=== PATIENT | male | born 1950 | race Caucasian/White ===

== ENCOUNTER 2018-11-10 14:07 | Inpatient (IN) | payer OTHER, MEDICARE ==
[~2018-11-10] VITALS: Ht 175.3 cm; Wt 106.1 kg
--- OUTSIDE RECORDS SUMMARY | 2018-11-10 14:10 | XMS REPORT | Clinical Summary ---
Author Author [employer] [facility] [employer] Address Unknown Phone Unavailable Care Team Providers Care Chalker Soles Name Role Phone Norbert Li DO PCP Allergies No Known Allergies Medications End Date Status Medication Sig Dispensed Refills Start Date Active albuterol (PROAIR Inhale 2 1 Inhaler 0 HFA,PROVENTIL puffs every 4 8 HFA,VENTOLIN HFA) 90 (four) hours mcg/actuation inhaler as needed for wheezing for up to 30 doses. 05/29/2018 clindamycin (CLEOCIN HCL) Take 1 40 capsule 0 300 MG capsule capsule (300 8 mg total) by mouth 4 (four) times a day for 10 days. 08/28/2018 Discontinued doxycycline (VIBRAMYCIN) Take 1 20 capsule 0 100 MG capsule capsule (100 8 mg total) by mouth 2 (two) times a day for 10 days. 09/24/2018 Saccharomyces boulardii Take 1 60 capsule 0 (FLORASTOR) 250 mg capsule (250 8 capsule mg total) by mouth 2 (two) times a day for 30 days. 08/28/2018 Discontinued oseltamivir (TAMIFLU) 75 Take 1 10 capsule 0 MG capsule capsule (75 8 mg total) by mouth every 12 (twelve) hours for 5 days. 09/01/2018 codeine-guaifenesin Take 5 mL by 150 mL 0 (CHERATUSSIN AC) 10-100 mouth 3 8 mg/5 mL liquid (three) times a day as needed for cough for up to 7 days. 09/28/2018 metFORMIN (GLUCOPHAGE) Take 1 tablet 30 tablet 0 500 mg tablet (500 mg 8 total) by mouth daily with breakfast for 30 days. 09/02/2018 oseltamivir (TAMIFLU) 75 Take 1 10 capsule 0 MG capsule capsule (75 8 mg total) by mouth 2 (two) times a day for 5 days. 08/31/2018 azithromycin (ZITHROMAX) Take 1 tablet 3 tablet 0 500 MG tablet (500 mg 8 total) by mouth daily for 3 days. Active Problems Problem Noted Date Shortness of breath 08/27/2018 Encounters Care Team Description Date Type Specialty Dallas Suarez MD Mayen Nunez, Jose Isaias, MD Shortness of breath (Primary Dx) 08/27/2018 Emergency General Internal Medicine - 08/28/2018 Rony Peters MD Flu-like symptoms (Primary Dx); Acute bronchitis with bronchospasm; Diarrhea, unspecified type; Hyperglycemia 08/25/2018 Emergency Emergency Medicine Shanel Mathews PA-C Islam, Nadim Bin, MD Cellulitis of neck (Primary Dx); Hyperglycemia; History of medication noncompliance 05/19/2018 Emergency Emergency Medicine after 11/09/2017 Social History Date Tobacco Use Types Packs/Day Years Used Never Smoker Smokeless Tobacco: Never Used Alcohol Use Drinks/Week oz/Week Comments Yes occasionally Sex Assigned at Date Recorded Not on file Industry Job Start Date Occupation Not on file Not on file Not on file Travel End Travel History Travel Start No recent travel history available. Last Filed Vital Signs Time Taken Vital Sign Reading 08/28/2018 7:49 AM TAX PROCESSOR Blood Pressure 175/93 08/28/2018 8:07 AM TAX PROCESSOR Pulse 81 08/28/2018 7:49 AM TAX PROCESSOR Temperature 36.6 C (97.8 F) 08/28/2018 8:07 AM TAX PROCESSOR Respiratory Rate 18 08/28/2018 7:59 AM TAX PROCESSOR Oxygen Saturation 94% - Inhaled Oxygen - Concentration 08/25/2018 11:52 AM TAX PROCESSOR Weight 102 kg (225 lb) 08/25/2018 11:52 AM TAX PROCESSOR Height 175.3 cm (5' 9") 08/25/2018 11:52 AM TAX PROCESSOR Body Mass Index 33.23 Plan of Treatment Health Maintenance Due Date Last Done Comments COLON CANCER SCREENING 2002 SHINGLES VACCINES (#1) 2002 65+ PNEUMOCOCCAL VACCINE 2017 (1 of 2 - PCV13) PNEUMOCOCCAL 2017 POLYSACCHARIDE VACCINE AGE 65 AND OVER INFLUENZA VACCINE 04/13/2018 Procedures Comments Procedure Name Priority Date/Time Associated Diagnosis TROPONIN STAT 08/27/2018 2:02 PM TAX PROCESSOR CREATINE KINASE, TOTAL STAT 08/27/2018 (CPK) 2:02 PM TAX PROCESSOR RESPIRATORY PATHOGEN Routine 08/27/2018 PANEL 12:22 PM TAX PROCESSOR INFLUENZA ANTIGEN Routine 08/27/2018 12:22 PM TAX PROCESSOR ESTIMATED GFR STAT 08/27/2018 12:21 PM TAX PROCESSOR COMPREHENSIVE METABOLIC STAT 08/27/2018 PANEL 12:21 PM TAX PROCESSOR HC COMPLETE BLD COUNT STAT 08/27/2018 W/AUTO DIFF 12:21 PM TAX PROCESSOR XR CHEST 2 VW STAT 08/27/2018 12:02 PM TAX PROCESSOR ECG 12-LEAD Routine 08/27/2018 11:18 AM TAX PROCESSOR ECG ED PRELIMINARY Routine 08/27/2018 INTERPRETATION 11:16 AM TAX PROCESSOR XR CHEST 2 VW STAT 08/25/2018 1:54 PM TAX PROCESSOR ESTIMATED GFR STAT 08/25/2018 12:33 PM TAX PROCESSOR BASIC METABOLIC PANEL STAT 08/25/2018 12:33 PM TAX PROCESSOR HC COMPLETE BLD COUNT STAT 08/25/2018 W/AUTO DIFF 12:33 PM TAX PROCESSOR RESPIRATORY PATHOGEN Routine 08/25/2018 PANEL 12:33 PM TAX PROCESSOR INFLUENZA ANTIGEN TEST, Routine 08/25/2018 REFLEX NEGATIVE TO RPP 12:33 PM TAX PROCESSOR ECG 12-LEAD Routine 08/25/2018 12:01 PM TAX PROCESSOR POC GLUCOSE Routine 05/19/2018 2:01 PM CDT URINALYSIS SCREEN AND Routine 05/19/2018 MICROSCOPY, WITH REFLEX 1:09 PM CDT TO CULTURE URINE CULTURE Routine 05/19/2018 1:09 PM CDT VENOUS BLOOD GAS Routine 05/19/2018 12:58 PM CDT ZZESTIMATED GFR STAT 05/19/2018 11:30 AM CDT COMPREHENSIVE METABOLIC STAT 05/19/2018 PANEL 11:30 AM CDT HC COMPLETE BLD COUNT STAT 05/19/2018 W/AUTO DIFF 11:30 AM CDT POC GLUCOSE Routine 05/19/2018 10:56 AM CDT after 11/09/2017 Results * Troponin (08/27/2018 2:02 PM TAX PROCESSOR) Troponin <0.300 0.000 - 0.300 ng/mL [facility] Comment: [facility] 0.30 - 1.49 ng/mlMay indicate increased risk of acute coronary syndrome. >=1.5 ng/ml Consistent with acute myocardial infarction. The diagnostic value of a single normal or non-diagnostic result is questionable.Serial samples at 2-6 hour intervals are required to rule out acute myocardial injury. Specimen Plasma specimen Performing Organization Address [facility] Phone Number [address] [place] [address] PATHOLOGY AND GENOMIC MEDICINE [address] * Creatine kinase, total (CPK) (08/27/2018 2:02 PM TAX PROCESSOR) Creatine kinase 67 39 - 308 U/L [facility] Specimen Plasma specimen Performing Organization Address [facility] Phone Number [address] [place] [address] PATHOLOGY AND GENOMIC MEDICINE [address] * Respiratory pathogen panel (08/27/2018 12:22 PM TAX PROCESSOR) Only the most recent of 2 results within the time period is included. Respiratory pathogen Positive for Influenza A/H3 [facility] Negative for all other pathogens tested: Negative for Adenovirus Negative for Coronavirus HKU1 Negative for Coronavirus NL63 Negative for Coronavirus 229E Negative for Coronavirus OC43 Negative for Human Metapneumovirus Negative for Rhinovirus/Enterovirus Negative for Influenza A Negative for Influenza A/H1 Negative for Influenza A/H1-2009 Negative for Influenza B Negative for Parainfluenza Virus 1 Negative for Parainfluenza Virus 2 Negative for Parainfluenza Virus 3 Negative for Parainfluenza Virus 4 Negative for Respiratory Syncytial Virus Negative for Bordetella pertussis Negative for Chlamydophila pneumoniae Negative for Mycoplasma pneumoniae This real-time PCR assay detects the presence of nucleic acids (RNA or DNA) for the respiratory pathogens listed. A result of "Not-detected" does not exclude the possibility of the presence of one or more pathogens at concentrations less than the detectable limits of the assa (A) Comment: Specimen Information Specimen Source: Nares Specimen Site: Right Specimen Nares - Right Performing Organization Address City/[facility]/Zipcode Phone Number [facility] DEPARTMENT [address] [place] [address] PATHOLOGY AND GENOMIC MEDICINE [address] * Influenza antigen (08/27/2018 12:22 PM TAX PROCESSOR) Influenza antigen Negative for Influenza A/B [facility]. [facility] Comment: Specimen Information Specimen Source: Nares Specimen Site: Right Specimen Nares - Right Performing Organization Address City/[facility]/Zipcode Phone Number [facility] [place] [address] [place] [address] PATHOLOGY AND GENOMIC MEDICINE [address] * Estimated GFR (08/27/2018 12:21 PM TAX PROCESSOR) Only the most recent of 2 results within the time period is included. Estimated GFR >=90 mL/min/1.73 m2 [facility] Comment: [facility] CatergoryUnitsInte rpretation G1 >=90 Normal or high G2 60-89Mildly decreased [id number] Mildly to moderately decreased Q4d91-69 Moderately to severely decreased G4 15-29Severely decreased G5 <15Kidney failure The eGFR was calculated using the Chronic Kidney Disease Epidemiology Collaboration (CKD-EPI) equation. Interpretation is based on recommendations of the National Kidney Foundation-Kidney Disease Outcomes Quality Initiative (NKF-KDOQI) published in 2014. Specimen Plasma specimen Performing Organization Address City/[facility]/Zipcode Phone Number [address] [place] [phone] PATHOLOGY AND GENOMIC MEDICINE [address] * CBC with platelet and differential (08/27/2018 12:21 PM TAX PROCESSOR) Only the most recent of 3 results within the time period is included. WBC 5.50 4.50 - 11.00 k/uL [facility] RBC 4.89 4.40 - 6.00 m/uL [facility] HGB 14.9 14.0 - 18.0 g/dL [facility] HCT 44.7 41.0 - 51.0 % [facility] MCV 91.4 82.0 - 100.0 fL [facility] MCH 30.5 27.0 - 34.0 pg [facility] MCHC 33.3 31.0 - 37.0 g/dL [facility] RDW - SD 41.0 37.0 - 55.0 fL [facility] MPV 9.4 8.8 - 13.2 fL [facility] Platelet count 243 150 - 400 k/uL [facility] Nucleated RBC 0.00 /100 WBC [facility] Neutrophils 70.3 (H) 39.0 - 69.0 % [facility] Lymphocytes 17.8 (L) 25.0 - 45.0 % [facility] Monocytes 10.4 (H) 0.0 - 10.0 % [facility] Eosinophils 0.5 0.0 - 5.0 % [facility] Basophils 0.5 0.0 - 1.0 % [facility] Specimen Blood Performing Organization Address City/[facility]/Zipcode Phone Number [facility] DEPARTMENT [address] [place] [address] PATHOLOGY AND GENOMIC MEDICINE [facility] [id number] [place] [address] [address] * Comprehensive metabolic panel (08/27/2018 12:21 PM TAX PROCESSOR) Only the most recent of 2 results within the time period is included. Sodium 135 135 - 148 mEq/L [facility] Potassium 4.5 3.5 - 5.0 mEq/L [facility] Chloride 98 98 - 112 mEq/L [facility] CO2 19 (L) 24 - 31 mEq/L [facility] Anion gap 18@ANIO (H) 7 - 15 mEq/L [facility] BUN 21 8 - 23 mg/dL [facility] Creatinine 0.70 0.70 - 1.20 mg/dL [facility] Glucose 326 (H) 65 - 99 mg/dL [facility] Calcium 8.8 8.8 - 10.2 mg/dL [facility] Protein 7.0 6.3 - 8.3 g/dL [facility] Comment: [facility] 4.6-7.0 g/dL 1 week 4.4-7.6 g/dL 7 months-1year 5.1-7.3 g/dL 1-2 years5.6-7 .5 g/dL >3 years6.0-8 .0 g/dL 18-150 6.3-8.3 g/dL Albumin 3.6 3.5 - 5.0 g/dL [facility] A/G ratio 1.1 0.7 - 3.8 [facility] Alkaline phosphatase 103 40 - 129 U/L [facility] AST 19 10 - 50 U/L [facility] ALT 14 5 - 50 U/L [facility] Total bilirubin 0.2 0.0 - 1.2 mg/dL [facility] Specimen Plasma specimen Performing Organization Address City/State/Zipcode Phone Number [facility] [address] [place] [address] PATHOLOGY AND GENOMIC MEDICINE [address] * XR Chest 2 Vw (08/27/2018 12:02 PM TAX PROCESSOR) Only the most recent of 2 results within the time period is included. Narrative Performed At EXAMINATION:XR CHEST 2 VW [facility] CLINICAL HISTORY:cough recent pneumonia COMPARISON:To previous study from 08/25/2018 IMPRESSION: Cardiomediastinal silhouette is normal. The lungs are clear. [id number] Procedure Note Hm Interface, Radiology Results Incoming - 08/27/2018 12:08 PM TAX PROCESSOR EXAMINATION: XR CHEST 2 VW CLINICAL HISTORY: cough recent pneumonia COMPARISON: To previous study from 08/25/2018 IMPRESSION: Cardiomediastinal silhouette is normal. The lungs are clear. [facility]-[id number] Performing Organization Address City/[facility] Phone Number [facility] [address] [place] [address] * ECG 12 lead (08/27/2018 11:18 AM TAX PROCESSOR) Only the most recent of 2 results within the time period is included. Ventricular rate 103 [facility] Atrial rate 103 [facility] KS interval 130 [facility] QRSD interval 72 [facility] QT interval 344 [facility] QTC interval 450 [facility] P axis 1 52 [facility] QRS axis 1 7 [facility] T wave axis 22 [facility] EKG impression Sinus tachycardia-Otherwise [facility] normal ECG-In automated comparison with ECG of 25-AUG-2018 12:01,-No significant change was found- Narrative Performed At Performing Organization Address [facility] Phone Number [facility] [address] [place] [address] * ECG ED Preliminary Interpretation - Not an Order (08/27/2018 11:16 AM TAX PROCESSOR) Narrative Performed At Dallas Suarez MD 08/28/20185:29 AM ECG ED Preliminary Interpretation - Not an Order Performed by: Paramjit Franz PA-C Authorized by: Dallas Suarez MD ECG reviewed by ED Physician in the absence of a inspector machine cut glass: yes Interpretation: Interpretation: abnormal Rate: ECG rate:103 ECG rate assessment: tachycardic Rhythm: Rhythm: sinus tachycardia Ectopy: Ectopy: none QRS: QRS axis:Normal QRS intervals:Normal Conduction: Conduction: normal ST segments: ST segments:Normal T waves: T waves: normal * Influenza antigen test, reflex negative to RPP (08/25/2018 12:33 PM TAX PROCESSOR) Influenza antigen Negative for Influenza A/B [facility] Comment: Specimen Information Specimen Source: Nares Specimen Site: Left Specimen Nares - Left Performing Organization Address [facility] Phone Number [address] [place] [address] PATHOLOGY AND GENOMIC MEDICINE [address] * Basic metabolic panel (08/25/2018 12:33 PM TAX PROCESSOR) Sodium 132 (L) 135 - 148 mEq/L [facility] Potassium 4.6 3.5 - 5.0 mEq/L [facility] Chloride 94 (L) 98 - 112 mEq/L [facility] CO2 24 24 - 31 mEq/L [facility] Anion gap 14@ANIO 7 - 15 mEq/L [facility] BUN 15 8 - 23 mg/dL [facility] Creatinine 0.90 0.70 - 1.20 mg/dL [facility] Glucose 378 (H) 65 - 99 mg/dL [facility] Calcium 9.1 8.8 - 10.2 mg/dL [facility] Specimen Plasma specimen Performing Organization Address [facility] Phone Number [address] [place] [address] PATHOLOGY AND GENOMIC MEDICINE [address] * POC glucose (05/19/2018 2:01 PM CDT) Only the most recent of 2 results within the time period is included. POC glucose 252 (H) 65 - 99 mg/dL [facility] DEPARTMENT OF Comment: PATHOLOGY AND Meter ID: [id number] GENOMIC MEDICINE Injection Molding Machine Tender: Greta Tovar Performing Organization Address [facility] Phone Number [address] [place] [address] PATHOLOGY AND GENOMIC MEDICINE * Urinalysis screen and microscopy, with reflex to culture (05/19/2018 1:09 PM CDT) Specimen site Clean catch [facility] DEPARTMENT OF PATHOLOGY AND GENOMIC MEDICINE Color, UA Straw [facility] DEPARTMENT OF PATHOLOGY AND GENOMIC MEDICINE Appearance, UA Clear [facility] DEPARTMENT OF PATHOLOGY AND GENOMIC MEDICINE Specific gravity, UA 1.023 1.001 - 1.035 [facility] DEPARTMENT OF PATHOLOGY AND GENOMIC MEDICINE pH, UA 5.0 5.0 - 8.5 [facility] DEPARTMENT OF PATHOLOGY AND GENOMIC MEDICINE Protein, UA Negative Negative [facility] DEPARTMENT OF PATHOLOGY AND GENOMIC MEDICINE Glucose, UA 3+ (A) Negative [facility] DEPARTMENT OF PATHOLOGY AND GENOMIC MEDICINE Ketones, UA 2+ (A) Negative [facility] DEPARTMENT OF PATHOLOGY AND GENOMIC MEDICINE Bilirubin, UA Negative Negative [facility] DEPARTMENT OF PATHOLOGY AND GENOMIC MEDICINE Blood, UA Negative Negative [facility] DEPARTMENT OF PATHOLOGY AND GENOMIC MEDICINE Nitrite, UA Negative Negative [facility] DEPARTMENT OF PATHOLOGY AND GENOMIC MEDICINE Urobilinogen, UA Negative <2.0 [facility] DEPARTMENT OF PATHOLOGY AND GENOMIC MEDICINE Leukocyte esterase, UA Negative Negative [facility] DEPARTMENT OF PATHOLOGY AND GENOMIC MEDICINE WBC, UA 0-5 0 - 1 /HPF [facility] DEPARTMENT OF PATHOLOGY AND GENOMIC MEDICINE RBC, UA 0-5 0 - 5 /HPF [facility] DEPARTMENT OF PATHOLOGY AND GENOMIC MEDICINE Bacteria, UA None seen None seen [facility] DEPARTMENT OF PATHOLOGY AND GENOMIC MEDICINE Yeast, UA None seen [facility] DEPARTMENT OF PATHOLOGY AND GENOMIC MEDICINE Yeast with pseudohyphae, None seen [facility] DEPARTMENT OF UA PATHOLOGY AND GENOMIC MEDICINE Specimen Urine Performing Organization Address City/[facility] Phone Number [address] [place] [address] PATHOLOGY AND [facility] MEDICINE * Urine culture (05/19/2018 1:09 PM CDT) Urine culture SEE COMMENTComment: [facility] DEPARTMENT OF Bacteriuria screen negative. PATHOLOGY AND GENOMIC MEDICINE Specimen Urine Performing Organization Address [facility] Phone Number [address] [place] [address] PATHOLOGY AND [facility] MEDICINE * Venous blood gas (05/19/2018 12:58 PM CDT) pH, venous 7.37 7.32 - 7.42 [facility] DEPARTMENT OF PATHOLOGY AND GENOMIC MEDICINE pCO2, venous 45 45 - 51 mmHg [facility] DEPARTMENT OF PATHOLOGY AND GENOMIC MEDICINE pO2, venous 35 25 - 40 mmHg [facility] OF PATHOLOGY AND GENOMIC MEDICINE Base excess, venous 0 -2 - 2 meq/L [facility] OF PATHOLOGY AND GENOMIC MEDICINE O2 saturation, venous 68 40 - 70 % [facility] OF PATHOLOGY AND GENOMIC MEDICINE Bicarbonate, venous 24.0 21.0 - 28.0 mmol/L [facility] OF PATHOLOGY AND GENOMIC MEDICINE FiO2, inspired O2% 21 % [facility] PATHOLOGY AND GENOMIC MEDICINE Specimen Blood Performing Organization Address City/[facility] Phone Number [facility] [place] [id number] [place] [address] [place] [address] PATHOLOGY [facility] * Estimated GFR (05/19/2018 11:30 AM CDT) GFR Non Af Amer >90 mL/min/1.73 m2 [facility] DEPARTMENT OF PATHOLOGY AND GENOMIC MEDICINE GFR Af Amer >90 mL/min/1.73 m2 [facility] DEPARTMENT OF Comment: PATHOLOGY AND Chronic kidney disease: <60 GENOMIC MEDICINE mL/min/1.73m2 Kidney failure: <15 mL/min/1.73m2 The estimated GFR is calculated from the IDMS-traceable Modification of Diet in Renal Disease Equation. The accuracy of the calculation is poor when the creatinine is normal. Calculated values >90 mL/min/1.73m2 are not reported. This equation has not been validated in children (<18 years), women, the elderly (>70 years), or ethnic groups other than Caucasians and Americans. Specimen Plasma specimen Performing Organization Address [facility] Phone Number [address] [place] [phone] [facility] Adknowledge [facility] after 11/09/2017 Insurance Payer Benefit Subscriber ID Type Phone Address Plan / Group [employer] CIGNA xxxxxxxxxxx HMO HMO/POS Advance Directives Patient has advance care planning documents on file. For more information, yuki carvajal contact: Karl Rice [address] [place] [address]
[2018-11-10] MEDS ORDERED: DIATRIZOATE MEGL/DIATRIZOA SOD 30 ML BTL PO ONE (14:42)
[2018-11-10 14:44] LABS: BASOPHILS % 0.3 % (0.0-1.0); HEMATOCRIT 37.8 % (38.2-49.6); HEMOGLOBIN 12.2 g/dL (14.0-18.0); LYMPHOCYTES # (AUTO) 0.4 (1.0-3.2); LYMPHOCYTES % 6.6 % (18.0-39.1); MEAN CORPUSCULAR HEMOGLOBIN 29.8 pg (28-32); MEAN CORPUSCULAR HGB CONC 32.3 g/dL (31-35); MEAN CORPUSCULAR VOLUME 92.4 fL (81-99); MONOCYTES # (AUTO) 0.2 (0.2-0.8); MONOCYTES % 2.9 % (4.4-11.3); NEUTROPHILS # (AUTO) 5.5 (2.1-6.9); NEUTROPHILS % 88.9 % (38.7-80.0); PLATELET COUNT 373 x10e3/uL (140-360); RED BLOOD COUNT 4.09 x10e6/uL (4.3-5.7); RED CELL DISTRIBUTION WIDTH 14.4 % (11.7-14.4)
[2018-11-10 15:11] LABS: ALANINE AMINOTRANSFERASE 10 IU/L (0-55); ALBUMIN 2.4 g/dL (3.5-5.0); ALBUMIN/GLOBULIN RATIO 0.7 (0.8-2.0); ALKALINE PHOSPHATASE 75 IU/L (40-150); BLOOD UREA NITROGEN 21 mg/dL (7-26); BUN/CREATININE RATIO 18 (6-25); CALCIUM 9.2 mg/dL (8.4-10.2); CARBON DIOXIDE 18 mmol/L (22-29); CHLORIDE 96 mmol/L (98-107); CREATININE, SERUM 1.19 mg/dL (0.72-1.25); EST GLOMERULAR FILTRATION RATE > 60 ML/MIN (60-); SODIUM 132 mmol/L (136-145)
[2018-11-10 15:13] LABS: GLUCOSE 467 mg/dL (74-118)
[2018-11-10 15:24] LABS: MAGNESIUM 1.7 MG/DL (1.3-2.1)
--- NOTE | 2018-11-10 16:05 | NUR ---
PATIENT AMBULATORY TO ER ROOM 3, ASSUMED CARE AT THIS TIME. PATIENT CONNECTED TO BEDSIDE NIBP AND SPO2. NO SIGNS OF ACUTE DISTRESS NOTED AT THIS TIME.
[2018-11-10] MEDS ORDERED: ONDANSETRON HCL INJ 2MG/ML 2ML 2 MG/ML VIAL IV PRN (16:30)
[2018-11-10] MEDS ORDERED: MORPHINE SULFATE 2 MG/ML SYR 1ML IV PRN (16:30)
[2018-11-10] MEDS ORDERED: APRISO0.375 GM PO (16:34)
[2018-11-10] MEDS ORDERED: PREDNISONE10 MG PO (16:34)
[2018-11-10] MEDS ORDERED: PANTOPRAZOLE SO40 MG PO (16:34)
[2018-11-10] MEDS ORDERED: TAMSULOSIN HCL0.4 MG PO (16:34)
[2018-11-10] MEDS ORDERED: [UNRECOGNIZED DRUG - OTHER] PO (16:34)
[2018-11-10] MEDS ORDERED: LOSARTAN POTAS100 MG PO (16:34)
[2018-11-10 16:35] LABS: CLARITY,URINE CLEAR (CLEAR); COLOR,URINE YELLOW (YELLOW); KETONES,URINE 2+ (NEGATIVE); LEUKOCYTE ESTERASE ,URINE NEGATIVE (NEGATIVE); NITRITE,URINE NEGATIVE (NEGATIVE); PROTEIN,URINE DIPSTICK NEGATIVE (NEGATIVE)
[2018-11-10 16:36] LABS: BILIRUBIN,URINE NEGATIVE (NEGATIVE); URINE UROBILINOGEN 0.2 mg/dL (0.2 - 1)
--- NOTE | 2018-11-10 16:44 | Diagnostic Imaging Report ---
EXAM: CT Abdomen and Pelvis with contrast INDICATION: Abdominal pain, history of Crohn's. COMPARISON: None. TECHNIQUE: Abdomen and pelvis were scanned utilizing a multidetector helical scanner from the lung base to the pubic symphysis after administration of IV contrast. Coronal and sagittal reformations were obtained. Routine protocol was performed. Scan was performed when during portal venous phase. IV CONTRAST: 100 cc of Isovue 370 ORAL CONTRAST: Water COMPLICATIONS: None RADIATION DOSE: Total DLP: 693 mGy*cm Estimated effective dose: (DLP x 0.015 x size factor) mSv CTDIvol has been reviewed. It is below the limits set by the Radiation Protocol Committee (RPC). Dose modulation, iterative reconstruction, and/or weight based adjustment of the mA/kV was utilized to reduce the radiation dose to as low as reasonably achievable. FINDINGS: LINES and TUBES: None. LOWER THORAX: Trace pericardial effusion. HEPATOBILIARY: No evidence of focal lesion. No biliary ductal dilation. Status post cholecystectomy. SPLEEN: No splenomegaly. PANCREAS: No focal masses or ductal dilatation. ADRENALS: No adrenal nodules KIDNEYS/URETERS: Kidneys enhance symmetrically. Subcentimeter right renal hypodensity is too small to characterize, but likely represents a cyst. Wedge-shaped defect within the right upper pole kidney could reflect sequela of prior infarct. No evidence of hydronephrosis or stone. Focal hydroureter within the distal left ureter (series 2, image 78) likely reflects phase of peristalsis as the ureter proximal and distal to this point are decompressed. GI TRACT: There is bowel wall thickening, mesenteric venous engorgement and mild pericolic stranding involving the distal descending and sigmoid colon as well as rectum. The terminal ileum is unremarkable in appearance. No evidence of stricture or fistula. Normal appendix. No evidence of bowel obstruction. Duodenal diverticulum is noted. PELVIC ORGANS/BLADDER: Unremarkable. LYMPH NODES: No lymphadenopathy. VESSELS: There are perisplenic/perigastric varices. PERITONEUM / RETROPERITONEUM: No free air or fluid. BONES AND SOFT TISSUES: No acute osseous abnormality. High density nonspecific sclerotic focus within the posterior ischium may reflect a bone island. There is a fat-containing right inguinal hernia. Clips are present within the bilateral scrotum. CONCLUSION: Findings consistent with colitis/proctitis involving the distal descending and sigmoid colon and rectum. Differential includes inflammatory and infectious etiologies. The terminal ileum appears unremarkable without evidence of stricture, fistula, or abscess. Perisplenic/perigastric varices. Non-cirrhotic morphology to the liver. Trace pericardial effusion. Signed by: Dr. Sammy Ng MD on 11/10/2018 4:41 PM
[2018-11-10] MEDS ORDERED: IOPAMIDOL 370 MG/ML 200 ML INFUS..BTL INJ ONE (16:45)
[2018-11-10] MEDS ORDERED: SODIUM CHLORIDE 0.9% 50ML 50 ML ONE (16:45)
[2018-11-10] MEDS ORDERED: INSULIN REGULAR, HUMAN 100 UNIT/1 ML 3ML VIAL IV ONE (17:00)
--- NOTE | 2018-11-10 17:06 | NUR ---
NOTIFIED DR JUAN GLUCOSE 306, INSTRUCTED TO HOLD INSULIN. AC AND HS ACCUCHECKS ORDERED AT THIS TIME.
[2018-11-10] MEDS ORDERED: DEXTROSE 50% SYRINGE 50 ML IV PRN (17:15)
[2018-11-10] MEDS: METHYLPREDNISOLONE SOD SUCC 125 MG/2ML VIAL IV SCH (17:20)
[2018-11-10] MEDS: SODIUM CHLORIDE 0.9% 1000ML 1,000 ML IV SCH (17:21)
[2018-11-10] MEDS ORDERED: METRONIDAZOLE 500MG/NS 100ML 100 ML IV STA (17:22)
--- NOTE | 2018-11-10 19:10 | NUR ---
VERBAL REPORT GIVEN TO AUSTEN HADDAD.
[2018-11-10] MEDS: CEFTRIAXONE SOD 1 GM/NS 50 ML 50 ML IV SCH (19:55)
--- OUTSIDE RECORDS SUMMARY | 2018-11-10 19:55 | XMS REPORT ---
Author Author [facility] Address Unknown Phone Unavailable Care Team Providers Care Space Operations Officer Name Role Phone Antoni WRAY Unavailable Unavailable Problems This patient has no known problems. Allergies, Adverse Reactions, Alerts This patient has no known allergies or adverse reactions. Medications This patient has no known medications. Results Test Description Test Time Test Comments Text Results Atomic Results Result Comments CT ABDOMEN/PELVIS W 2018-11-10 16:30:00 [place] [id number] [place] [address] Patient Name: SARBJIT BOSCH MR #: [id number] : 1950 Age/Sex: 68/M Req #: [id number] Adm Physician: Ordered by: PALOMA WRAY MD Report #: [id number] Location: ER Room/Bed: Procedure: [id number] CT/CT ABDOMEN/PELVIS W Exam Date: 11/10/18 Exam Time: 1604 REPORT STATUS: Signed EXAM: CT Abdomen and Pelvis with contrast INDICA TION: Abdominal pain, history of Crohn's. COMPARISON: None. TECHNIQUE: Abdomen and pelvis were scanned utilizing a multidetector helical scanner from the lung base to the pubic symphysis after administration of IV contrast. Coronal and sagittal reformations were obtained. Routine protocol was performed. Scan was performed when during portal venous phase. IV CONTRAST: 100 cc of Isovue 370 ORAL CONTRAST: Water COMPLICATIONS: None RADIATION DOSE: Total DLP: 693 mGy*cm Estimated effective dose: (DLP x 0.015 x size factor) mSv CTDIvol has been reviewed. It is below the limits set by the Radiation Protocol Committee (RPC). Dose modulation, iterative reconstruction, and/or weight based adjustment of the mA/kV was utilized to reduce the radiation dose to as low as reasonably achievable. FINDINGS: LINES and TUBES: None. LOWER THORAX: Trace pericardial effusion. HEPATOBILIARY: No evidence of focal lesion. No biliary ductal dilation. Status post cholecystectomy. SPLEEN: No splenomegaly. PANCREAS: No focal masses or ductal dilatation. ADRENALS: No adrenal nodules KIDNEYS/URETERS: Kidneys enhance symmetrically. Subcentimeter right renal hypodensity is too small to characterize, but likely represents a cyst. Wedge-shaped defect within the right upper pole kidney could reflect sequela of prior infarct. No evidence of hydronephrosis or stone. Focal hydroureter within the distal left ureter (series 2, image 78) likely reflects phase of peristalsis as the ureter proximal and distal to this point are decompressed. GI TRACT: There is bowel wall thickening, mesenteric venous engorgement and mild pericolic stranding involving the distal descending and sigmoid colon as well as rectum. The terminal ileum is unremarkable in appearance. No evidence of stricture or fistula. Normal appendix. No evidence of bowel obstruction. Duodenal diverticulum is noted. PELVIC ORGANS/BLADDER: Unremarkable. LYMPH NODES: No lymphadenopathy. VESSELS: There are perisplenic/perigastric varices. PERITONEUM / RETROPERITONEUM: No free air or fluid. BONES AND SOFT TISSUES: No acute osseous abnormality. High density nonspecific sclerotic focus within the posterior ischium may reflect a bone island. There is a fat-containing right inguinal hernia. Clips are present within the bilateral scrotum. CONCLUSION: Findings consistent with colitis/proctitis involving the distal descending and sigmoid colon and rectum. Differential includes inflammatory and infectious etiologies. The terminal ileum appears unremarkable without evidence of stricture, fistula, or abscess. Perisplenic/perigastric varices. Non-cirrhotic morphology to the liver. Trace pericardial effusion. Signed by: Dr. Madhuri Shaw MD on 11/10/2018 4:41 PM Dictated By: MADHURI SHAW MD 164 Transcribed By: FREDERIC on 11/10/181640 COPY TO: PALOMA WRAY MD
--- OUTSIDE RECORDS SUMMARY | 2018-11-10 19:55 | XMS REPORT | Clinical Summary ---
Author Author [facility] Address Unknown Phone Unavailable Care Team Providers Care Firearms Instructor Name Role Phone Norbert Li DO PCP [...] Taken Vital Sign Reading 08/28/2018 7:49 AM SECURITY CONSULTANT Blood Pressure 175/93 08/28/2018 8:07 AM SECURITY CONSULTANT Pulse 81 08/28/2018 7:49 AM SECURITY CONSULTANT Temperature 36.6 C (97.8 F) 08/28/2018 8:07 AM SECURITY CONSULTANT Respiratory Rate 18 08/28/2018 7:59 AM SECURITY CONSULTANT Oxygen Saturation 94% - Inhaled Oxygen - Concentration 08/25/2018 11:52 AM SECURITY CONSULTANT Weight 102 kg (225 lb) 08/25/2018 11:52 AM SECURITY CONSULTANT Height 175.3 cm (5' 9") 08/25/2018 11:52 AM SECURITY CONSULTANT Body Mass Index 33.23 Plan of Treatment Health Maintenance Due Date Last Done Comments COLON CANCER SCREENING 2002 SHINGLES VACCINES (#1) 2002 65+ PNEUMOCOCCAL VACCINE 2017 (1 of 2 - PCV13) PNEUMOCOCCAL 2017 POLYSACCHARIDE VACCINE AGE 65 AND OVER INFLUENZA VACCINE 04/13/2018 Procedures Comments Procedure Name Priority Date/Time Associated Diagnosis TROPONIN STAT 08/27/2018 2:02 PM SECURITY CONSULTANT CREATINE KINASE, TOTAL STAT 08/27/2018 (CPK) 2:02 PM SECURITY CONSULTANT RESPIRATORY PATHOGEN Routine 08/27/2018 PANEL 12:22 PM SECURITY CONSULTANT INFLUENZA ANTIGEN Routine 08/27/2018 12:22 PM SECURITY CONSULTANT ESTIMATED GFR STAT 08/27/2018 12:21 PM SECURITY CONSULTANT COMPREHENSIVE METABOLIC STAT 08/27/2018 PANEL 12:21 PM SECURITY CONSULTANT HC COMPLETE BLD COUNT STAT 08/27/2018 W/AUTO DIFF 12:21 PM SECURITY CONSULTANT XR CHEST 2 VW STAT 08/27/2018 12:02 PM SECURITY CONSULTANT ECG 12-LEAD Routine 08/27/2018 11:18 AM SECURITY CONSULTANT ECG ED PRELIMINARY Routine 08/27/2018 INTERPRETATION 11:16 AM SECURITY CONSULTANT XR CHEST 2 VW STAT 08/25/2018 1:54 PM SECURITY CONSULTANT ESTIMATED GFR STAT 08/25/2018 12:33 PM SECURITY CONSULTANT BASIC METABOLIC PANEL STAT 08/25/2018 12:33 PM SECURITY CONSULTANT HC COMPLETE BLD COUNT STAT 08/25/2018 W/AUTO DIFF 12:33 PM SECURITY CONSULTANT RESPIRATORY PATHOGEN Routine 08/25/2018 PANEL 12:33 PM SECURITY CONSULTANT INFLUENZA ANTIGEN TEST, Routine 08/25/2018 REFLEX NEGATIVE TO RPP 12:33 PM SECURITY CONSULTANT ECG 12-LEAD Routine 08/25/2018 12:01 PM SECURITY CONSULTANT POC GLUCOSE Routine 05/19/2018 2:01 PM CDT [...] 11/09/2017 Results * Troponin (08/27/2018 2:02 PM SECURITY CONSULTANT) Troponin <0.300 0.000 - 0.300 ng/mL [facility] Comment: [facility] 0.30 - 1.49 ng/mlMay indicate increased risk of acute coronary syndrome. >=1.5 ng/ml Consistent with acute myocardial infarction. The diagnostic value of a single normal or non-diagnostic result is questionable.Serial samples at 2-6 hour intervals are required to rule out acute myocardial injury. Specimen Plasma specimen Performing Organization Address [facility] Phone Number [address] [place] [address] PATHOLOGY AND GENOMIC MEDICINE [address] * Creatine kinase, total (CPK) (08/27/2018 2:02 PM SECURITY CONSULTANT) Creatine kinase 67 39 - 308 U/L [facility] Specimen Plasma specimen Performing Organization Address [facility] Cent[facility]ode Phone Number [address] [place] [address] PATHOLOGY AND GENOMIC MEDICINE [address] * Respiratory pathogen panel (08/27/2018 12:22 PM SECURITY CONSULTANT) Only the most recent of 2 results within the time period is included. Respiratory pathogen Positive for Influenza A/H3 [facility] Negative for all other pathogens [...] Specimen Nares - Right Performing Organization Address City/[facility]/Zipcode Phone Number [facility] [address] [place] [address] PATHOLOGY AND GENOMIC MEDICINE [address] * Influenza antigen (08/27/2018 12:22 PM SECURITY CONSULTANT) Influenza antigen Negative for Influenza A/B [facility]. [facility] Comment: Specimen Information Specimen Source: Nares Specimen Site: Right Specimen Nares - Right Performing Organization Address City/[facility]/Zipcode Phone Number [facility] [place] [address] [place] [address] PATHOLOGY AND GENOMIC MEDICINE [address] * Estimated GFR (08/27/2018 12:21 PM SECURITY CONSULTANT) Only the most recent of 2 results within the time period is included. Estimated GFR >=90 mL/min/1.73 m2 [facility] Comment: [facility] CatergoryUnitsInte rpretation G1 >=90 Normal or high G2 60-89Mildly decreased [id number] Mildly to moderately decreased C3j75-49 Moderately to severely decreased G4 15-29Severely decreased G5 <15Kidney failure The eGFR was calculated using the Chronic Kidney Disease Epidemiology Collaboration (CKD-EPI) equation. Interpretation is based on recommendations of the National Kidney Foundation-Kidney Disease Outcomes Quality Initiative (NKF-KDOQI) published in 2014. Specimen Plasma specimen Performing Organization Address City/[facility]/Zipcode Phone Number [address] [place] [id number] PATHOLOGY AND GENOMIC MEDICINE [address] * CBC with platelet and differential (08/27/2018 12:21 PM SECURITY CONSULTANT) Only the most recent of 3 results within the time period is included. WBC 5.50 4.50 - 11.00 k/uL [facility] RBC 4.89 4.40 - 6.00 m/uL [facility] HGB 14.9 14.0 - 18.0 g/dL [facility] HCT 44.7 41.0 - 51.0 % [facility] MCV 91.4 82.0 - 100.0 fL [facility] MCH 30.5 27.0 - 34.0 pg [facility] MCHC 33.3 31.0 - 37.0 g/dL [facility] RDW - SD 41.0 37.0 - 55.0 fL [facility] MPV 9.4 8.8 - 13.2 fL [facility] Platelet count 243 150 - 400 k/uL [facility] Nucleated RBC 0.00 /100 WBC [facility] Neutrophils 70.3 (H) 39.0 - 69.0 % [facility] Lymphocytes 17.8 (L) 25.0 - 45.0 % [facility] Monocytes 10.4 (H) 0.0 - 10.0 % [facility] Eosinophils 0.5 0.0 - 5.0 % [facility] Basophils 0.5 0.0 - 1.0 % [facility] Specimen Blood Performing Organization Address City/[facility]/Zipcode Phone Number [facility] DEPARTMENT [address] [place] [address] PATHOLOGY AND GENOMIC MEDICINE [facility] [id number] [place] [address] [address] [place] * Comprehensive metabolic panel (08/27/2018 12:21 PM SECURITY CONSULTANT) Only the most recent of 2 results within the time period is included. Sodium 135 135 - 148 mEq/L [facility] Potassium 4.5 3.5 - 5.0 mEq/L [facility] Chloride 98 98 - 112 mEq/L [facility] CO2 19 (L) 24 - 31 mEq/L [facility] Anion gap 18@ANIO (H) 7 - 15 mEq/L [facility] BUN 21 8 - 23 mg/dL [facility] Creatinine 0.70 0.70 - 1.20 mg/dL [facility] Glucose 326 (H) 65 - 99 mg/dL [facility] Calcium 8.8 8.8 - 10.2 mg/dL [facility] Protein 7.0 6.3 - 8.3 g/dL [facility] Comment: [facility] 4.6-7.0 g/dL 1 week 4.4-7.6 g/dL 7 months-1year 5.1-7.3 g/dL 1-2 years5.6-7 .5 g/dL >3 years6.0-8 .0 g/dL 18-150 6.3-8.3 g/dL Albumin 3.6 3.5 - 5.0 g/dL [facility] A/G ratio 1.1 0.7 - 3.8 [facility] Alkaline phosphatase 103 40 - 129 U/L [facility] AST 19 10 - 50 U/L [facility] ALT 14 5 - 50 U/L [facility] Total bilirubin 0.2 0.0 - 1.2 mg/dL [facility] Specimen Plasma specimen Performing Organization Address City/State/Zipcode Phone Number [facility] [address] [place] [address] PATHOLOGY AND GENOMIC MEDICINE [address] [place] [place] * XR Chest 2 Vw (08/27/2018 12:02 PM SECURITY CONSULTANT) Only the most recent of 2 results within the time period is included. Narrative Performed At EXAMINATION:XR CHEST 2 VW [facility] CLINICAL HISTORY:cough recent pneumonia COMPARISON:To previous study from 08/25/2018 IMPRESSION: Cardiomediastinal silhouette is normal. The lungs are clear. [id number] Procedure Note Hm Interface, Radiology Results Incoming - 08/27/2018 12:08 PM SECURITY CONSULTANT EXAMINATION: XR CHEST 2 VW CLINICAL HISTORY: cough recent pneumonia COMPARISON: To previous study from 08/25/2018 IMPRESSION: Cardiomediastinal silhouette is normal. The lungs are clear. [facility]-[id number] Performing Organization Address City/[facility] Phone Number [facility] [address] [place] [address] * ECG 12 lead (08/27/2018 11:18 AM SECURITY CONSULTANT) Only the most recent of 2 results within the time period is included. Ventricular rate 103 [facility] Atrial rate 103 [facility] AR interval 130 [facility] QRSD interval 72 [facility] QT interval 344 [facility] QTC interval 450 [facility] P axis 1 52 [facility] QRS axis 1 7 [facility] T wave axis 22 [facility] EKG impression Sinus tachycardia-Otherwise [facility] normal ECG-In automated comparison with ECG of 25-AUG-2018 12:01,-No significant change was found- Narrative Performed At Performing Organization Address [facility] Phone Number [facility] [address] [place] [address] * ECG ED Preliminary Interpretation - Not an Order (08/27/2018 11:16 AM SECURITY CONSULTANT) Narrative Performed At Dallas Suarez MD 08/28/20185:29 AM ECG ED Preliminary Interpretation - Not an Order Performed by: Paramjit Franz PA-C Authorized by: Dallas Suarez MD ECG reviewed by ED Physician in the absence of a security tester: yes Interpretation: Interpretation: abnormal Rate: ECG rate:103 ECG rate assessment: tachycardic Rhythm: Rhythm: sinus tachycardia Ectopy: Ectopy: none QRS: QRS axis:Normal QRS intervals:Normal Conduction: Conduction: normal ST segments: ST segments:Normal T waves: T waves: normal * Influenza antigen test, reflex negative to RPP (08/25/2018 12:33 PM SECURITY CONSULTANT) Influenza antigen Negative for Influenza A/B [facility] Comment: Specimen Information Specimen Source: Nares Specimen Site: Left Specimen Nares - Left Performing Organization Address [facility] Phone Number [address] [place] [address] PATHOLOGY AND GENOMIC MEDICINE [address] * Basic metabolic panel (08/25/2018 12:33 PM SECURITY CONSULTANT) Sodium 132 (L) 135 - 148 mEq/L [facility] Potassium 4.6 3.5 - 5.0 mEq/L [facility] Chloride 94 (L) 98 - 112 mEq/L [facility] CO2 24 24 - 31 mEq/L [facility] Anion gap 14@ANIO 7 - 15 mEq/L [facility] BUN 15 8 - 23 mg/dL [facility] Creatinine 0.90 0.70 - 1.20 mg/dL [facility] Glucose 378 (H) 65 - 99 mg/dL [facility] Calcium 9.1 8.8 - 10.2 mg/dL [facility] Specimen Plasma specimen Performing Organization Address [facility] Phone Number [address] [place] [address] PATHOLOGY AND GENOMIC MEDICINE [address] * POC glucose (05/19/2018 2:01 PM CDT) Only the most recent of 2 results within the time period is included. POC glucose 252 (H) 65 - 99 mg/dL [facility] DEPARTMENT OF Comment: PATHOLOGY AND Meter ID: [id number] GENOMIC MEDICINE Shipper/Receiver: Greta Tovar Performing Organization Address [facility] Centercode Phone Number [address] [place] [address] PATHOLOGY AND GENOMIC MEDICINE * Urinalysis screen and microscopy, with reflex to culture (05/19/2018 1:09 PM CDT) Specimen site Clean catch [facility] DEPARTMENT OF PATHOLOGY AND GENOMIC MEDICINE Color, UA Straw [facility] DEPARTMENT OF PATHOLOGY AND GENOMIC MEDICINE Appearance, UA Clear [facility] DEPARTMENT OF PATHOLOGY AND GENOMIC MEDICINE Specific gravity, UA 1.023 1.001 - 1.035 [facility] DEPARTMENT OF PATHOLOGY AND GENOMIC MEDICINE pH, UA 5.0 5.0 - 8.5 [facility] DEPARTMENT OF PATHOLOGY AND GENOMIC MEDICINE Protein, UA Negative Negative [facility] DEPARTMENT OF PATHOLOGY AND GENOMIC MEDICINE Glucose, UA 3+ (A) Negative [facility] DEPARTMENT OF PATHOLOGY AND GENOMIC MEDICINE Ketones, UA 2+ (A) Negative [facility] DEPARTMENT OF PATHOLOGY AND GENOMIC MEDICINE Bilirubin, UA Negative Negative [facility] DEPARTMENT OF PATHOLOGY AND GENOMIC MEDICINE Blood, UA Negative Negative [facility] DEPARTMENT OF PATHOLOGY AND GENOMIC MEDICINE Nitrite, UA Negative Negative [facility] DEPARTMENT OF PATHOLOGY AND GENOMIC MEDICINE Urobilinogen, UA Negative <2.0 [facility] DEPARTMENT OF PATHOLOGY AND GENOMIC MEDICINE Leukocyte esterase, UA Negative Negative [facility] DEPARTMENT OF PATHOLOGY AND GENOMIC MEDICINE WBC, UA 0-5 0 - 1 /HPF [facility] DEPARTMENT OF PATHOLOGY AND GENOMIC MEDICINE RBC, UA 0-5 0 - 5 /HPF [facility] DEPARTMENT OF PATHOLOGY AND GENOMIC MEDICINE Bacteria, UA None seen None seen [facility] DEPARTMENT OF PATHOLOGY AND GENOMIC MEDICINE Yeast, UA None seen [facility] DEPARTMENT OF PATHOLOGY AND GENOMIC MEDICINE Yeast with pseudohyphae, None seen [facility] DEPARTMENT OF UA PATHOLOGY AND GENOMIC MEDICINE Specimen Urine Performing Organization Address City/[facility] Centercode Phone Number [address] [place] [address] PATHOLOGY AND [facility] MEDICINE * Urine culture (05/19/2018 1:09 PM CDT) Urine culture SEE COMMENTComment: [facility] DEPARTMENT OF Bacteriuria screen negative. PATHOLOGY AND GENOMIC MEDICINE Specimen Urine Performing Organization Address [facility] Centercode Phone Number [address] [place] [address] PATHOLOGY AND [facility] MEDICINE * Venous blood gas (05/19/2018 12:58 PM CDT) pH, venous 7.37 7.32 - 7.42 [facility] DEPARTMENT OF PATHOLOGY AND GENOMIC MEDICINE pCO2, venous 45 45 - 51 mmHg [facility] DEPARTMENT OF PATHOLOGY AND GENOMIC MEDICINE pO2, venous 35 25 - 40 mmHg [facility] OF PATHOLOGY AND GENOMIC MEDICINE Base excess, venous 0 -2 - 2 meq/L [facility] OF PATHOLOGY AND GENOMIC MEDICINE O2 saturation, venous 68 40 - 70 % [facility] OF PATHOLOGY AND GENOMIC MEDICINE Bicarbonate, venous 24.0 21.0 - 28.0 mmol/L [facility] OF PATHOLOGY AND GENOMIC MEDICINE FiO2, inspired O2% 21 % [facility] PATHOLOGY AND GENOMIC MEDICINE Specimen Blood Performing Organization Address City/[facility] Cent[facility]ode Phone Number [facility] [id number] [place] [address] [place] [address] PATHOLOGY [facility] * Estimated GFR (05/19/2018 11:30 AM CDT) GFR Non Af Amer >90 mL/min/1.73 m2 [facility] DEPARTMENT OF PATHOLOGY AND GENOMIC MEDICINE GFR Af Amer >90 mL/min/1.73 m2 [facility] DEPARTMENT OF Comment: PATHOLOGY AND Chronic kidney [...] Americans. Specimen Plasma specimen Performing Organization Address [facility] Centercode Phone Number [address] [place] [phone] [facility] [employer] [facility] after 11/09/2017 Insurance Payer Benefit Subscriber ID Type Phone Address Plan / Group CIGNA CIGNA xxxxxxxxxxx HMO HMO/POS Advance Directives Patient has advance care planning documents on file. For more information, yuki carvajal contact: Karl Rice [address] [place] [address]
[2018-11-10 20:02] VITALS: BP 136/76
[2018-11-10 20:18] VITALS: BP 136/76
[2018-11-10] MEDS: INSULIN REGULAR, HUMAN 100 UNIT/1 ML 3ML VIAL SQ SCH (21:00)
[2018-11-11] VITALS (8 sets, daily range): BP systolic 115–162; BP diastolic 62–88
[2018-11-11] MEDS: METHYLPREDNISOLONE SOD SUCC 125 MG/2ML VIAL IV SCH ×3 (01:32→17:24)
[2018-11-11] MEDS: SODIUM CHLORIDE 0.9% 1000ML 1,000 ML IV SCH ×3 (01:32→17:21)
[2018-11-11 04:53] LABS: BASOPHILS % 0.4 % (0.0-1.0); HEMATOCRIT 38.4 % (38.2-49.6); HEMOGLOBIN 12.1 g/dL (14.0-18.0); LYMPHOCYTES # (AUTO) 0.3 (1.0-3.2); LYMPHOCYTES % 5.1 % (18.0-39.1); MEAN CORPUSCULAR HEMOGLOBIN 29.8 pg (28-32); MEAN CORPUSCULAR HGB CONC 31.5 g/dL (31-35); MEAN CORPUSCULAR VOLUME 94.6 fL (81-99); MONOCYTES # (AUTO) 0.1 (0.2-0.8); MONOCYTES % 1.2 % (4.4-11.3); NEUTROPHILS # (AUTO) 4.5 (2.1-6.9); NEUTROPHILS % 92.1 % (38.7-80.0); PLATELET COUNT 351 x10e3/uL (140-360); RED BLOOD COUNT 4.06 x10e6/uL (4.3-5.7); RED CELL DISTRIBUTION WIDTH 14.6 % (11.7-14.4)
[2018-11-11 05:15] LABS: ALANINE AMINOTRANSFERASE 7 IU/L (0-55); ALBUMIN 2.3 g/dL (3.5-5.0); ALBUMIN/GLOBULIN RATIO 0.7 (0.8-2.0); ALKALINE PHOSPHATASE 61 IU/L (40-150); ANION GAP 26.5 mmol/L (8-16); BLOOD UREA NITROGEN 18 mg/dL (7-26); BUN/CREATININE RATIO 21 (6-25); CALCIUM 8.4 mg/dL (8.4-10.2); CARBON DIOXIDE 10 mmol/L (22-29); CHLORIDE 102 mmol/L (98-107); CREATININE, SERUM 0.85 mg/dL (0.72-1.25); EST GLOMERULAR FILTRATION RATE > 60 ML/MIN (60-); GLUCOSE 260 mg/dL (74-118); POTASSIUM 4.5 mmol/L (3.5-5.1); SODIUM 134 mmol/L (136-145)
[2018-11-11] MEDS: INSULIN REGULAR, HUMAN 100 UNIT/1 ML 3ML VIAL SQ SCH ×4 (07:30→21:00)
[2018-11-11] MEDS: MESALAMINE 0.375 GM CAPCR PO SCH (09:00)
[2018-11-11] MEDS: LOSARTAN POTASSIUM 100 MG TAB PO SCH (09:00)
[2018-11-11] MEDS ORDERED: PREDNISONE 10 MG TAB PO SCH (09:00)
[2018-11-11] MEDS: PANTOPRAZOLE SOD 40 MG TABEC PO SCH (10:13)
[2018-11-11] MEDS: TAMSULOSIN HCL 0.4 MG CAP PO SCH (10:14)
[2018-11-11] MEDS ORDERED: ACETAMINOPHEN 325 MG TAB PO PRN (12:15)
[2018-11-11] MEDS ORDERED: HYDRALAZINE HCL 20 MG/ML VIAL IV PRN (12:15)
[2018-11-11] MEDS: MORPHINE SULFATE INJ 4 MG/ML INJ 1ML IV PRN ×2 (13:33→23:40)
--- NOTE | 2018-11-11 16:45 | NUR ---
Dr. Syed rounded and new orders received and noted.
[2018-11-11] MEDS: CEFTRIAXONE SOD 1 GM/NS 50 ML 50 ML IV SCH (17:23)
[2018-11-11] MEDS: METFORMIN HCL 500 MG TAB CR PO SCH (17:32)
--- NOTE | 2018-11-11 19:43 | NUR ---
Nutrition Intervention Note RD Recommendation(s) for Physician: -Continue GI soft/ ADA diet as ordered -RD provided diet education related to ulcerative colitis on 11/11. -The patient meets criteria for MODERATE protein-calorie malnutrition. Plan of Care: RD following, monitoring for tolerance and adequacy, diet education Nutrition reason for involvement: Nutrition Risk Trigger MST RD Assessment 11/11 68yo M, who was admitted for abdominal pain with diarrhea x 6 weeks. Stool culture pending. IVF running at 125mL/hr. Visited pt in the room. Pt reported ~40lbs weight loss and decreased meal intake for 6 weeks. UBW ~225lbs. Minimal sign of fat loss noted upon NFPA. Pt tolerated GI soft/ ADA diet for dinner today. 100% observed meal intake. Appetite has improved significant. No GI complains noted. No chewing or swallowing difficulty reported. Will continue to monitor and follow. Principal Problems/Diagnoses: ulcerative colitis PMH: DM GI: abdomen flat, soft, tender, flatus present, LBM 11/10 diarrhea Skin: no pressure ulcer noted Labs: (11/11) Na 134 L, Glucose 160 - 270 Meds: glucophage, abx, NaCl, insulin, protonix, solu-medrol Ht: 69in Wt: 181lb BMI: 26.7kg/m2 IBW: 160lb Malnutrition Evaluation (11/11) The patient meets criteria for MODERATE protein-calorie malnutrition. Energy intake: <75% of estimated energy requirements for >1 month Weight loss: >5% in 1 month (Acute) Fat loss: Mild slight clavicle protrusion Muscle loss: N/A Supporting Evidence: Fluid accumulation: unable to evaluate Functional Status: no changes Nutrition Prescription (Diet Order): GI soft/ ADA Estimated Nutritional Needs: Calories: 1476 1640kcal (18-20kcal/kg/d) Weight used: current BW Protein: 82 123g(1-1.5g/kg/d) Weight used: current BW Diet Adequacy: Meeting calorie needs, Meeting protein needs Diet Education Needs Assessment: Diet education indicated and patient agreeable. Learner(s): pt Time spent: 20mins Barriers: No barriers identified. Cultural/Language Modifications: No cultural/language modifications noted. Pt speaks Kinyarwanda. Readiness: Pt eager to learn. Method: Handouts, explanation Topics: Ulcerative colitis nutrition therapy Understanding/Compliance: Expect good understanding/compliance from pt. Will benefit from reinforcement. All questions have been answered. Nutrition Care Level: low Nutrition Diagnosis: Food and nutrition related knowledge deficit related to newly diagnosed ulcerative colitis as evidenced by pt not understanding low fiber diet. Goal: Patient will meet 75-100% of estimated needs by follow up Progress: Progressing Interventions: Carbohydrate-modified diet, diet education Monitoring/Evaluation: Total energy intake, Total protein intake, Formula, Modified diet, Weight change, Ability to recall nutrition goals, Level of knowledge, Self management Signed: Bethany Figueroa MS, RD, LD
--- NOTE | 2018-11-11 21:10 | NUR ---
STOOL SPECIMEN SENT TO LAB ORDERED.
--- NOTE | 2018-11-11 23:40 | NUR ---
PATIENT C/O PAIN TO THE ABDOMEN WITH PAIN SCORE #5, MEDICATED WITH MORPHINE ORDERED. CALL LIGHT WITHIN EASY REACH, INSTRUCTED TO CALL FOR ASSISTANCE UPON GETTING OUT OF THE BED.
[2018-11-12] MEDS: SODIUM CHLORIDE 0.9% 1000ML 1,000 ML IV SCH ×3 (00:39→17:05)
[2018-11-12] MEDS: METHYLPREDNISOLONE SOD SUCC 125 MG/2ML VIAL IV SCH ×3 (00:39→17:05)
--- NOTE | 2018-11-12 00:45 | Consultation ---
DATE OF CONSULTATION: 11/11/2018 HISTORY OF PRESENT ILLNESS: Mr. Rehman is a 68-year-old, who presented to the hospital because of significant problem with diarrhea, up to about 15-20 bowel movements a day and does not have a history of ulcerative colitis. He has been treated outpatient with mesalamine as well as prednisone and some antibiotic, which does not seem to work. His workup on the CAT scan showed evidence of colitis, mostly in the left colon along with perisplenic and perigastric varices. His labs showed sodium of 134 and the hemoglobin is 12.1. He has been started on high-dose of Solu-Medrol, which seems to work. At this point, he does not have any abdominal pain or diarrhea anymore. His other medical problems are significant for history of diabetes and his history of recently diagnosed with the ulcerative colitis. His medications at home including losartan, Apriso, Protonix, prednisone as high as 40 mg, and tamsulosin. SOCIAL HISTORY: No alcohol use. FAMILY HISTORY: Noncontributory. REVIEW OF SYSTEMS: Denies any chest pain. No shortness of breath. Denies any dysphagia or odynophagia. Denies any dysuria or hematuria or any kind of syncopal episodes. PHYSICAL EXAMINATION: GENERAL: He is awake and alert, appears to be stable, in no acute distress at this point. VITAL SIGNS: Afebrile . HEENT: Sclerae anicteric. NECK: Supple. ABDOMEN: Soft. There is no distention. At this point, it is nontender. EXTREMITIES: Demonstrate no clubbing. LABORATORY VALUES: WBC of 4.86 and hemoglobin of 12.1. BUN 18 and creatinine of 0.85. Liver enzymes normal. IMPRESSION: 1. Ulcerative colitis, not controlled. 2. Anemia. RECOMMENDATIONS: Continue on high-dose steroid at this point as well as the mesalamine. Follow clinically, advance diet. The patient is going to probably benefit from Remicade or biologics as an outpatient. MD LAUREANO Armstrong/JOSE /[id number] cc: Norbert Li DO
--- NOTE | 2018-11-12 03:55 | NUR ---
PATIENT IS ASLEEP, HE'S EASY TO AROUSE. NO RESPIRATORY DISTRESS OBSERVED, HE DENIES ABDOMINAL PAIN. MORNING LAB OBTAINED ORDERED.
[2018-11-12 04:25] LABS: BASOPHILS % 0.4 % (0.0-1.0); EOSINOPHILS % 0.3 % (0.0-6.0); HEMOGLOBIN 10.9 g/dL (14.0-18.0); LYMPHOCYTES # (AUTO) 0.3 (1.0-3.2); LYMPHOCYTES % 3.2 % (18.0-39.1); MEAN CORPUSCULAR HGB CONC 32.1 g/dL (31-35); MEAN CORPUSCULAR VOLUME 93.7 fL (81-99); MONOCYTES # (AUTO) 0.3 (0.2-0.8); MONOCYTES % 3.3 % (4.4-11.3); NEUTROPHILS # (AUTO) 8.6 (2.1-6.9); NEUTROPHILS % 91.6 % (38.7-80.0); PLATELET COUNT 373 x10e3/uL (140-360); RED BLOOD COUNT 3.63 x10e6/uL (4.3-5.7); RED CELL DISTRIBUTION WIDTH 14.9 % (11.7-14.4)
[2018-11-12 04:49] LABS: ANION GAP 19.5 mmol/L (8-16); BLOOD UREA NITROGEN 23 mg/dL (7-26); BUN/CREATININE RATIO 21 (6-25); CARBON DIOXIDE 10 mmol/L (22-29); CHLORIDE 107 mmol/L (98-107); EST GLOMERULAR FILTRATION RATE > 60 ML/MIN (60-); GLUCOSE 335 mg/dL (74-118); POTASSIUM 4.5 mmol/L (3.5-5.1); SODIUM 132 mmol/L (136-145)
[2018-11-12 05:10] LABS: B-TYPE NATRIURETIC PEPTIDE2 77.4 pg/mL (0-100)
[2018-11-12 07:25] LABS: MAGNESIUM 1.9 MG/DL (1.3-2.1)
[2018-11-12 07:52] LABS: FREE T4 (FREE THYROXINE) 0.69 ng/dL (0.9-1.8); THYROID STIMULATING HORMONE 0.465 uIU/mL (0.350-4.940)
[2018-11-12 08:12] VITALS: BP 139/67
[2018-11-12] MEDS: METFORMIN HCL 500 MG TAB CR PO SCH (08:52)
[2018-11-12] MEDS: PANTOPRAZOLE SOD 40 MG TABEC PO SCH (08:52)
[2018-11-12] MEDS: MESALAMINE 0.375 GM CAPCR PO SCH (08:52)
[2018-11-12] MEDS: TAMSULOSIN HCL 0.4 MG CAP PO SCH (08:57)
[2018-11-12] MEDS: LOSARTAN POTASSIUM 100 MG TAB PO SCH (08:57)
[2018-11-12] MEDS ORDERED: CANAGLIFLOZIN 100 MG TABLET PO SCH (09:00)
[2018-11-12] MEDS: INSULIN REGULAR, HUMAN 100 UNIT/1 ML 3ML VIAL SQ SCH ×2 (09:01→11:37)
[2018-11-12 09:52] VITALS: BP 139/67
--- NOTE | 2018-11-12 12:45 | NUR ---
SPOKE TO DR. BLACKMON REGARDING CONSULT. STATES WILL SEE PT LATER TODAY. REQUEST CALL BACK WITH CMP RESULTS.
[2018-11-12 12:47] VITALS: BP 117/60
[2018-11-12 13:38] LABS: BASOPHILS % 0.2 % (0.0-1.0); EOSINOPHILS % 0.1 % (0.0-6.0); HEMATOCRIT 34.3 % (38.2-49.6); HEMOGLOBIN 11.3 g/dL (14.0-18.0); LYMPHOCYTES # (AUTO) 0.3 (1.0-3.2); LYMPHOCYTES % 3.3 % (18.0-39.1); MEAN CORPUSCULAR HEMOGLOBIN 30.2 pg (28-32); MEAN CORPUSCULAR HGB CONC 32.9 g/dL (31-35); MEAN CORPUSCULAR VOLUME 91.7 fL (81-99); MONOCYTES # (AUTO) 0.3 (0.2-0.8); MONOCYTES % 3.3 % (4.4-11.3); NEUTROPHILS # (AUTO) 7.8 (2.1-6.9); NEUTROPHILS % 92.4 % (38.7-80.0); PLATELET COUNT 363 x10e3/uL (140-360); RED BLOOD COUNT 3.74 x10e6/uL (4.3-5.7); RED CELL DISTRIBUTION WIDTH 14.9 % (11.7-14.4)
--- NOTE | 2018-11-12 13:52 | NUR ---
NOTIFIED JENNIE FARIA WITH DR. SOTO REGARDING POSITIVE CDIFF. NEW ORDERS RECEIVED. PT ALREADY ON CONTACT ISOLATION.
[2018-11-12 13:59] LABS: ALANINE AMINOTRANSFERASE 8 IU/L (0-55); ALBUMIN 1.9 g/dL (3.5-5.0); ALBUMIN/GLOBULIN RATIO 0.6 (0.8-2.0); ALKALINE PHOSPHATASE 54 IU/L (40-150); ANION GAP 17.1 mmol/L (8-16); BLOOD UREA NITROGEN 22 mg/dL (7-26); BUN/CREATININE RATIO 20 (6-25); CALCIUM 8.2 mg/dL (8.4-10.2); CARBON DIOXIDE 13 mmol/L (22-29); CHLORIDE 107 mmol/L (98-107); CREATININE, SERUM 1.11 mg/dL (0.72-1.25); EST GLOMERULAR FILTRATION RATE > 60 ML/MIN (60-); POTASSIUM 4.1 mmol/L (3.5-5.1); SODIUM 133 mmol/L (136-145)
[2018-11-12 14:00] LABS: BAND NEUTROPHILS % (MANUAL) 4 %; LYMPHOCYTES % (MANUAL) 5 % (19-48); MONOCYTES % (MANUAL) 1 % (3.4-9.0); NEUTROPHILS % (MANUAL) 90 % (40-74); PLATELET ESTIMATE ADEQUATE; PLATELET MORPHOLOGY COMMENT NORMAL; RBC MORPHOLOGY COMMENT NORMAL
[2018-11-12 14:16] LABS: GLUCOSE 412 mg/dL (74-118)
--- NOTE | 2018-11-12 14:19 | NUR ---
NOTIFIED DR. BLACKMON OF LAB RESULTS. GLUCOSE 412. STATES TO GIVE 10 UNITS OF HUMALOG AND HE WILL SEE PT LATER.
[2018-11-12] MEDS: METRONIDAZOLE 500MG/NS 100ML 100 ML IV SCH ×2 (14:25→21:40)
[2018-11-12] MEDS ORDERED: INSULIN LISPRO 100 UNIT/1 ML 3ML VIAL SQ ONE (15:00)
[2018-11-12 16:42] VITALS: BP 99/51
[2018-11-12] MEDS ORDERED: INSULIN GLARGINE 100 UNITS/ML VIAL SQ SCH (17:00)
[2018-11-12 17:01] LABS: FREE T4 (FREE THYROXINE) 0.66 ng/dL (0.9-1.8); THYROID STIMULATING HORMONE 0.381 uIU/mL (0.350-4.940)
[2018-11-12] MEDS: CEFTRIAXONE SOD 1 GM/NS 50 ML 50 ML IV SCH (17:05)
[2018-11-12] MEDS: VANCOMYCIN 250MG/5ML ORAL SOLN PO SCH ×2 (17:05→23:28)
[2018-11-12] MEDS: INSULIN LISPRO 100 UNIT/1 ML 3ML VIAL SQ SCH ×3 (17:18→21:00)
[2018-11-12] MEDS ORDERED: VANCOMYCIN 250MG/5ML ORAL SOLN PO SCH (18:00)
--- NOTE | 2018-11-12 19:14 | Progress Note ---
DATE: 11/12/2018 SUBJECTIVE: The patient reports decrease in frequency of diarrhea; however, his stool is still not firm. REVIEW OF SYSTEMS: GENERAL: No fever or chills. CVS: No chest pain or palpitations. RESPIRATORY: No cough or expectoration. MEDICATIONS: Reviewed as per NOV. He is getting oral vancomycin and methylprednisolone 60 mg IV q.8 hours, ceftriaxone 1 g q.24 hours, metronidazole 500 mg IV q.8 hours along with other medications. PHYSICAL EXAMINATION: VITAL SIGNS: Temperature 97, pulse 90, respirations 18, blood pressure 117/62 and 99/51. GENERAL: Not in any acute distress. HEENT: Oral mucosa is moist. Anicteric sclerae. ABDOMEN: Soft, nondistended. Mild lower quadrant tenderness. No mass or hernia. Positive bowel sounds. LABORATORY DATA: Stool C difficile positive. Sodium 133, potassium 4.1, chloride 107, bicarb 13, BUN 22, creatinine 1.11, glucose 412. WBC 8.45, hemoglobin 11.3, hematocrit 34.3, and platelet count 363. ASSESSMENT: 1. Clostridium difficile associated diarrhea. 2. Flare of ulcerative colitis. PLAN: Continue present antibiotic as well as steroids. Monitor him clinically. Follow electrolytes. Case Montgomery MD SA/JOSE /[id number]
--- NOTE | 2018-11-12 19:45 | NUR ---
NO DISTRESS OBSERVED, PATIENT DENIES PAIN. FAMILY MEMBERS VISITING WITH THE PATIENT AT THIS TIME.
[2018-11-12 20:00] VITALS: BP 105/57
[2018-11-12] MEDS: INSULIN GLARGINE 100 UNITS/ML VIAL SQ SCH (21:00)
[2018-11-12] MEDS: MORPHINE SULFATE INJ 4 MG/ML INJ 1ML IV PRN (23:28)
--- NOTE | 2018-11-12 23:30 | NUR ---
PATIENT C/O PAIN TO THE ABDOMEN WITH PAIN SCORE #5, MEDICATED WITH MORPHINE ORDERED. CALL LIGHT WITHIN EASY REACH, INSTRUCTED TO CALL FOR ASSISTANCE NEEDED.
[2018-11-13] VITALS (7 sets, daily range): BP systolic 116–142; BP diastolic 64–75
[2018-11-13] MEDS: SODIUM CHLORIDE 0.9% 1000ML 1,000 ML IV SCH ×5 (01:25→19:15)
[2018-11-13] MEDS: METHYLPREDNISOLONE SOD SUCC 40 MG/ML VIAL 1ML IV SCH ×3 (01:25→16:23)
--- NOTE | 2018-11-13 01:27 | NUR ---
PATIENT IS ASLEEP, HE'S EASY TO AROUSE. NO ACUTE DISTRESS OBSERVED, HE DENIES ABDOMINAL PAIN. CALL LIGHT WITHIN EASY REACH, INSTRUCTED TO CALL FOR ASSISTANCE NEEDED.
--- NOTE | 2018-11-13 01:55 | Consultation ---
DATE OF CONSULTATION: This is a patient of Dr. Rg. Thank you very much for referring this patient. HISTORY OF PRESENT ILLNESS: This is a 68-year-old white male gentleman, who is referred to me for evaluation of uncontrolled diabetes mellitus. The patient reports he is a known diabetic for almost 6-7 years and presently he is taking Xigduo, which is a combination of SGLT2 inhibitor that is Farxiga and the metformin at home. The patient has long-standing history of ulcerative colitis and this time he came to the hospital because of exacerbation of the ulcerative colitis. His other medical problems include history of hypertension. He has also history of benign hypertrophy of the prostate. During the hospital stay, his blood sugars have been significantly elevated and he is in mild ketoacidosis. His anion gap was elevated around 20. His blood sugars today are significantly elevated. The patient is also getting high doses of steroids for his ulcerative colitis at this time. PHYSICAL EXAMINATION: GENERAL: The patient is alert, awake, a little bit apprehensive. VITAL SIGNS: His heart rate is around 78, blood pressure is 160/90 mmHg. HEENT: Essentially unremarkable. Thyroid is palpable. Clinically, he is euthyroid. CHEST: Bilateral scattered wheezing. He has mild bronchospasm. CARDIAC: . The patient has evidence of diabetic sensory neuropathy in both lower extremities. PHYSICAL EXAMINATION: His blood sugar today is between 297-410. His anion gap is around 17.1 and his hemoglobin A1c is 11.6. CLINICAL IMPRESSION: 1. Diabetes mellitus, type 2, uncontrolled with complications, precipitated by steroids. 2. Mild diabetic ketoacidosis. 3. Ulcerative colitis. 4. Hypertension. 5. Benign hypertrophy of the prostate. PLAN: The plan at this time is to DC the metformin in view of his severe colitis and also Invokana because the patient has mild diabetic ketoacidosis. We will start him on a combination of the Lantus and the Humalog insulin, monitor his blood sugars closely. The patient agrees to this plan. I will be following this patient with you. MD MADELINE Colon/JOSE /[id number]
[2018-11-13] MEDS: MORPHINE SULFATE INJ 4 MG/ML INJ 1ML IV PRN (04:05)
--- NOTE | 2018-11-13 04:15 | NUR ---
PATIENT MEDICATED WITH MORPHINE FOR ABDOMINAL PAIN, BLOOD DRAWN FOR AM LAB ORDERED.
[2018-11-13 04:21] LABS: BASOPHILS % 0.4 % (0.0-1.0); EOSINOPHILS % 0.5 % (0.0-6.0); HEMATOCRIT 32.9 % (38.2-49.6); HEMOGLOBIN 10.8 g/dL (14.0-18.0); LYMPHOCYTES # (AUTO) 0.3 (1.0-3.2); LYMPHOCYTES % 3.2 % (18.0-39.1); MEAN CORPUSCULAR HEMOGLOBIN 29.8 pg (28-32); MEAN CORPUSCULAR HGB CONC 32.8 g/dL (31-35); MEAN CORPUSCULAR VOLUME 90.9 fL (81-99); MONOCYTES # (AUTO) 0.4 (0.2-0.8); MONOCYTES % 4.4 % (4.4-11.3); NEUTROPHILS # (AUTO) 7.4 (2.1-6.9); NEUTROPHILS % 90.8 % (38.7-80.0); PLATELET COUNT 353 x10e3/uL (140-360); RED BLOOD COUNT 3.62 x10e6/uL (4.3-5.7); RED CELL DISTRIBUTION WIDTH 14.9 % (11.7-14.4)
[2018-11-13 05:08] LABS: ANION GAP 13.9 mmol/L (8-16); BLOOD UREA NITROGEN 22 mg/dL (7-26); BUN/CREATININE RATIO 24 (6-25); CALCIUM 8.3 mg/dL (8.4-10.2); CARBON DIOXIDE 17 mmol/L (22-29); CHLORIDE 107 mmol/L (98-107); CREATININE, SERUM 0.92 mg/dL (0.72-1.25); EST GLOMERULAR FILTRATION RATE > 60 ML/MIN (60-); GLUCOSE 273 mg/dL (74-118); MAGNESIUM 1.6 MG/DL (1.3-2.1); POTASSIUM 3.9 mmol/L (3.5-5.1); SODIUM 134 mmol/L (136-145)
[2018-11-13] MEDS: METRONIDAZOLE 500MG/NS 100ML 100 ML IV SCH ×3 (06:29→22:38)
[2018-11-13] MEDS: VANCOMYCIN 250MG/5ML ORAL SOLN PO SCH ×3 (06:29→16:23)
[2018-11-13] MEDS ORDERED: METHYLPREDNISOLONE SOD SUCC 125 MG/2ML VIAL IV SCH (07:00)
[2018-11-13] MEDS: PANTOPRAZOLE SOD 40 MG TABEC PO SCH (08:42)
[2018-11-13] MEDS: MESALAMINE 0.375 GM CAPCR PO SCH (08:43)
[2018-11-13] MEDS: INSULIN GLARGINE 100 UNITS/ML VIAL SQ SCH ×2 (08:43→21:22)
[2018-11-13] MEDS: INSULIN LISPRO 100 UNIT/1 ML 3ML VIAL SQ SCH ×7 (08:43→21:23)
[2018-11-13] MEDS: TAMSULOSIN HCL 0.4 MG CAP PO SCH (08:43)
[2018-11-13] MEDS: LOSARTAN POTASSIUM 100 MG TAB PO SCH (08:43)
[2018-11-13 09:47] LABS: BAND NEUTROPHILS % (MANUAL) 6 %; LYMPHOCYTES % (MANUAL) 5 % (19-48); MONOCYTES % (MANUAL) 4 % (3.4-9.0); NEUTROPHILS % (MANUAL) 85 % (40-74); PLATELET ESTIMATE ADEQUATE; PLATELET MORPHOLOGY COMMENT NORMAL; RBC MORPHOLOGY COMMENT NORMAL
--- NOTE | 2018-11-13 14:05 | NUR ---
Visit made by the Spiritual Care Department Pastoral Visitor, Iza Palacios. PV provided pastoral presence, hospitality, and supportive listening. Pastoral Visitor informed pt/family of the scope of [employer] and availability. NIESHA HUNTER [employer] Spiritual Care Department O: [phone] Pager: [phone] ([phone] number calling from)
[2018-11-13] MEDS: LACTOBACILLUS ACIDOPHILUS CAPSULE PO SCH (16:23)
[2018-11-13] MEDS ORDERED: INSULIN GLARGINE 100 UNITS/ML VIAL SQ SCH (17:00)
--- NOTE | 2018-11-13 21:10 | NUR ---
NO RESPIRATORY DISTRESS OBSERVED, PATIENT DENIES ABDOMINAL PAIN. FAMILY MEMBER VISITING WITH THE PATIENT, HE'S INSTRUCTED TO CALL FOR ASSISTANCE NEEDED.
[2018-11-13] MEDS: CHOLESTYRAMINE 4 GM PACKET PO SCH (21:13)
[2018-11-14] VITALS: BP 170/74
[2018-11-14] MEDS: METHYLPREDNISOLONE SOD SUCC 40 MG/ML VIAL 1ML IV SCH ×2 (00:25→09:00)
[2018-11-14] MEDS: VANCOMYCIN 250MG/5ML ORAL SOLN PO SCH ×3 (00:25→12:00)
[2018-11-14] MEDS: MORPHINE SULFATE INJ 4 MG/ML INJ 1ML IV PRN (00:26)
--- NOTE | 2018-11-14 00:45 | Progress Note ---
DATE: 11/13/2018 SUBJECTIVE: The patient continues to have diarrhea, although it has slowed down. His stool is slowly getting firmer. REVIEW OF SYSTEMS: GENERAL: No fever or chills. RESPIRATORY: No cough or expectoration. CVS: No chest pain or palpitations. MEDICATIONS: Intravenous metronidazole, oral vancomycin along with intravenous methylprednisolone as well as other medications. PHYSICAL EXAMINATION: VITAL SIGNS: Temperature 97.4, pulse 86, respirations 20, blood pressure 116/64, oxygen saturation 96% on room air. GENERAL: Not in any acute distress. HEENT: Oral mucosa is moist. Anicteric sclerae. ABDOMEN: Soft, nondistended. Mild lower quadrant tenderness on deep palpation without rebound, rigidity, or guarding. Bowel sounds normal. LABORATORY DATA: WBC 8.12, hemoglobin 10.8 down from 11.3, hematocrit 32.9, MCV 90.9, platelet count 353. Sodium 134, potassium 3.9, chloride 107, bicarb 17, BUN 22, creatinine 0.92, glucose 273. Clostridium difficile toxin A and B positive. ASSESSMENT: 1. Clostridium difficile associated diarrhea. 2. The questionable flare of ulcerative colitis. The patient has stated today that he is not sure whether he has ulcerative colitis. PLAN: I will leave the decision on Dr. Syed, the patient's GI, regarding treating the ulcerative colitis flare. However, we will continue oral vancomycin as well as intravenous metronidazole for Clostridium difficile associated diarrhea. The patient's white count is normal. Case Montgomery MD SA/JOSE /[id number]
[2018-11-14 00:47] VITALS: BP 160/88
--- NOTE | 2018-11-14 01:35 | Consultation ---
DATE OF CONSULTATION: REASON FOR CONSULTATION: The patient has nausea, vomiting, diarrhea, and colitis. HISTORY OF PRESENT ILLNESS: This patient is a 68-year-old white male, who was admitted on November 11. He comes into the emergency room with diarrhea, abdominal pain, about 15-20 bowel movements. The patient has a history of ulcerative colitis. He was treated outpatient. The patient comes in with the above complaint. CAT scan showed there is colitis, so the patient is being admitted. He was given a steroid, he was seen by GI. The patient, however, told me he is still having abdominal discomfort as well as diarrhea. The patient comes here. PAST MEDICAL HISTORY: As above. PAST SURGICAL HISTORY: As above. ALLERGIES: NKA. SOCIAL HISTORY: There is no smoking, drug abuse, alcohol abuse. LABORATORY DATA: White count is 8.12, hemoglobin is 10, his C. diff was positive. Creatinine was 0.92. MEDICATIONS LIST: He is on metronidazole, vancomycin, prednisolone, ceftriaxone. PHYSICAL EXAMINATION: GENERAL: He is currently alert and oriented, does not seem to be in acute distress. VITAL SIGNS: Stable. Currently, afebrile. HEENT: . NECK: Supple. CHEST: Clear bilateral. COR: S1, S2. . ABDOMEN: Soft. Bowel sounds present. discomfort. IMPRESSION: Diarrhea, Clostridium difficile. Recommend to discontinue ceftriaxone. We will discuss with GI if we can hold off his steroids for the time being, add probiotic. We will check CBC, . We will add also Questran. We will follow up clinically. MD PERI Chicas/JOSE /[id number]
--- NOTE | 2018-11-14 03:50 | NUR ---
WALKING ROUNDS MADE, PATIENT IS USING THE TOILET AT THIS TIME.
[2018-11-14 04:00] VITALS: BP 146/83
[2018-11-14] MEDS: SODIUM CHLORIDE 0.9% 1000ML 1,000 ML IV SCH (04:44)
[2018-11-14 05:03] LABS: BASOPHILS % 0.2 % (0.0-1.0); HEMOGLOBIN 10.4 g/dL (14.0-18.0); LYMPHOCYTES # (AUTO) 0.2 (1.0-3.2); LYMPHOCYTES % 4.1 % (18.0-39.1); MEAN CORPUSCULAR HGB CONC 33.5 g/dL (31-35); MEAN CORPUSCULAR VOLUME 89.3 fL (81-99); MONOCYTES # (AUTO) 0.2 (0.2-0.8); MONOCYTES % 4.3 % (4.4-11.3); NEUTROPHILS # (AUTO) 5.1 (2.1-6.9); NEUTROPHILS % 90.5 % (38.7-80.0); PLATELET COUNT 312 x10e3/uL (140-360); RED BLOOD COUNT 3.47 x10e6/uL (4.3-5.7); RED CELL DISTRIBUTION WIDTH 14.9 % (11.7-14.4)
[2018-11-14 05:40] LABS: ANION GAP 9.7 mmol/L (8-16); BLOOD UREA NITROGEN 19 mg/dL (7-26); BUN/CREATININE RATIO 25 (6-25); CARBON DIOXIDE 22 mmol/L (22-29); CHLORIDE 106 mmol/L (98-107); CREATININE, SERUM 0.75 mg/dL (0.72-1.25); EST GLOMERULAR FILTRATION RATE > 60 ML/MIN (60-); GLUCOSE 304 mg/dL (74-118); MAGNESIUM 1.8 MG/DL (1.3-2.1); POTASSIUM 3.7 mmol/L (3.5-5.1); SODIUM 134 mmol/L (136-145)
[2018-11-14] MEDS: METRONIDAZOLE 500MG/NS 100ML 100 ML IV SCH (06:27)
[2018-11-14] MEDS: PANTOPRAZOLE SOD 40 MG TABEC PO SCH (07:30)
[2018-11-14] MEDS: INSULIN LISPRO 100 UNIT/1 ML 3ML VIAL SQ SCH ×4 (07:30→11:30)
[2018-11-14 07:44] LABS: LYMPHOCYTES % (MANUAL) 3 % (19-48); MONOCYTES % (MANUAL) 5 % (3.4-9.0); NEUTROPHILS % (MANUAL) 92 % (40-74)
[2018-11-14 07:46] LABS: PLATELET ESTIMATE ADEQUATE; PLATELET MORPHOLOGY COMMENT NORMAL; RBC MORPHOLOGY COMMENT NORMAL
[2018-11-14 08:01] VITALS: BP 147/87
[2018-11-14] MEDS: LACTOBACILLUS ACIDOPHILUS CAPSULE PO SCH (09:00)
[2018-11-14] MEDS: CHOLESTYRAMINE 4 GM PACKET PO SCH (09:00)
[2018-11-14] MEDS: MESALAMINE 0.375 GM CAPCR PO SCH (09:00)
[2018-11-14] MEDS: LOSARTAN POTASSIUM 100 MG TAB PO SCH (09:00)
[2018-11-14] MEDS: INSULIN GLARGINE 100 UNITS/ML VIAL SQ SCH (09:00)
[2018-11-14] MEDS: TAMSULOSIN HCL 0.4 MG CAP PO SCH (09:00)
--- NOTE | 2018-11-14 09:00 | NUR ---
A/C TO [facility] PT CAN GO HOME IF OK WITH DR PRYOR AND DR CALDWELL
[2018-11-14] MEDS ORDERED: CHOLESTYRAMINE L4 GM PO (09:24)
[2018-11-14] MEDS ORDERED: Lactobacillus Acidophilus PO (09:24)
--- NOTE | 2018-11-14 10:30 | NUR ---
TALKED AL PA REGARDING DISCHARGE GOT THE ORDER TO OK TO DISCHARGE
--- NOTE | 2018-11-14 12:00 | NUR ---
PAGED AND TALKED DR PRYOR REGARDING DISCHARGE GOT THE DISCHARGE ORDER PT NEED TO CONTINUE PREDNISONE AND MESALAMINE
[2018-11-14] MEDS ORDERED: ACIDOPHILUS1 EAC1 PO (12:33)
[2018-11-14] MEDS ORDERED: VANCOMYCIN PO (12:44)
--- NOTE | 2018-11-14 12:52 | NUR ---
PAGED AND TALKED [facility] THE DISCHARGE APPROVAL OF DR CALDWELL AND DR PRYOR GOT THE DISCHARGE ORDER
--- NOTE | 2018-11-14 13:15 | NUR ---
PT WENT HOME IN SAFE CONDITION WITH HIS
--- NOTE | 2018-11-15 02:17 | Discharge Summary ---
ADMISSION DIAGNOSES: Colitis, hypertension, benign prostatic hypertrophy, type 2 diabetes, and hyponatremia. DISCHARGE DIAGNOSES: Colitis, hypertension, benign prostatic hypertrophy, type 2 diabetes, hyponatremia, Clostridium difficile present on admission, and metabolic acidosis. HISTORY: The patient has a history of hypertension, BPH, colitis, and type 2 diabetes. PAST SURGICAL HISTORY: Cholecystectomy, abdominal fistula repair. FAMILY HISTORY: Noncontributory. SOCIAL HISTORY: Noncontributory. HOSPITAL COURSE: A 68-year-old male, complains of fecal incontinence and constant dull and intermittent sharp bilateral lower quadrant abdominal pain. Nothing improves or worsens pain. The patient denies nausea and vomiting. On admission, the patient was started on Rocephin and Flagyl per the ER doc. CT of the abdomen showed findings consistent with colitis involving the distal descending and sigmoid colon and rectum. C difficile came back positive. The patient started on vancomycin and Rocephin discontinued. The patient resumed prednisone and Apriso per GI recommendation. Endocrinology was consulted due to a possible DKA as the patient's blood sugar was in the 400s on admission. The patient will discharge home with GoLYTELY, probiotic, and vancomycin per Infectious Disease recommendation. He has been cleared for discharge from all consults. He will follow up with primary care in 1-[address] Syed as discussed. Vital signs stable, patient afebrile. The patient understands discharge instructions and agrees to plan. JENNIE Parker/MODL /[id number]
[2018-11-15] MEDS ORDERED: OYST-CAL-D 500MG TABLET PO SCH (09:00)
[2018-11-15] MEDS ORDERED: PREDNISONE 20 MG TAB PO SCH (09:00)
== END 2018-11-14 13:15 | disposition home or self-care (01) | DRG 371 ==
LOC: ER 14:07 → ERHOLD 19:52 → MED/SURG2 20:05 → OBSVTOIN 11-13 11:20
PROVIDERS: ADMIT Internal Medicine; ATTEND Internal Medicine
DX: A04.72 Enterocolitis due to Clostridium difficile, not specified as recurrent (principal); E11.10 Type 2 diabetes mellitus with ketoacidosis without coma; K51.90 Ulcerative colitis, unspecified, without complications; E87.1 Hypo-osmolality and hyponatremia; E87.2 Acidosis; I10 Essential (primary) hypertension; N40.0 Benign prostatic hyperplasia without lower urinary tract symptoms; E11.42 Type 2 diabetes mellitus with diabetic polyneuropathy; E83.51 Hypocalcemia; D64.9 Anemia, unspecified; R53.81 Other malaise; Z28.21 Immunization not carried out because of patient refusal
CPT/HCPCS: 36415; 74177; 80048; 80053; 81001; 82010; 82150; 82948; 83036; 83690; 83735; 83880; 84439; 84443; 85025; 86255; 87493; 96367; 96372; 96376; 99284; G0378; J0696; J1815; J2270; J2920; J2930; J7030; Q9967

== ENCOUNTER 2020-03-07 12:53 | Outpatient (RCR) | payer MEDICARE, OTHER ==
[~2020-03-07 12:53] MED LIST: ACIDOPHILUS1 EAC1 PO; APRISO0.375 GM PO; CHOLESTYRAMINE L4 GM PO; LIDOCAINE/PRILOCAINE 2.5-2.5% KIT ONE; LOSARTAN POTAS100 MG PO; Lactobacillus Acidophilus PO; MUPIROCIN 2% OINT 22 GM TUBE ONE; PANTOPRAZOLE SO40 MG PO; PREDNISONE10 MG PO; TAMSULOSIN HCL0.4 MG PO; VANCOMYCIN PO; [UNRECOGNIZED DRUG - OTHER] PO
[2020-03-07] MEDS ORDERED: MUPIROCIN 2% OINT 22 GM TUBE ONE (16:06)
[2020-03-07] MEDS ORDERED: LIDOCAINE/PRILOCAINE 2.5-2.5% KIT ONE (16:06)
== END 2020-03-12 ==
LOC: WCC 12:53
PROVIDERS: ATTEND Family Medicine
DX: L89.302 Pressure ulcer of unspecified buttock, stage 2 (principal); E11.628 Type 2 diabetes mellitus with other skin complications; Y83.8 Other surgical procedures as the cause of abnormal reaction of the patient, or of later complication, without mention of misadventure at the time of the procedure; S31.809A Unspecified open wound of unspecified buttock, initial encounter; I10 Essential (primary) hypertension; K51.019 Ulcerative (chronic) pancolitis with unspecified complications; Z74.01 Bed confinement status
CPT/HCPCS: 87071; 87075; 87186; 87205

== ENCOUNTER 2020-04-10 10:48 | Outpatient (RCR) | payer MEDICARE, OTHER | END 2020-04-12 | LOC: WCC 10:48 | PROVIDERS: ATTEND Family Medicine | DX: E11.628 Type 2 diabetes mellitus with other skin complications (principal); L89.152 Pressure ulcer of sacral region, stage 2; L89.302 Pressure ulcer of unspecified buttock, stage 2; Y83.8 Other surgical procedures as the cause of abnormal reaction of the patient, or of later complication, without mention of misadventure at the time of the procedure; I10 Essential (primary) hypertension; K51.019 Ulcerative (chronic) pancolitis with unspecified complications; B95.2 Enterococcus as the cause of diseases classified elsewhere; B96.89 Other specified bacterial agents as the cause of diseases classified elsewhere; Z74.01 Bed confinement status | CPT/HCPCS: 87071; 87075; 87186; 87205 ==

== ENCOUNTER 2020-05-08 10:35 | Outpatient (RCR) | payer MEDICARE, OTHER | END 2020-05-13 | LOC: WCC 10:35 | PROVIDERS: ATTEND Family Medicine | DX: L89.152 Pressure ulcer of sacral region, stage 2 (principal); L89.302 Pressure ulcer of unspecified buttock, stage 2; Y83.8 Other surgical procedures as the cause of abnormal reaction of the patient, or of later complication, without mention of misadventure at the time of the procedure; E11.628 Type 2 diabetes mellitus with other skin complications; B95.2 Enterococcus as the cause of diseases classified elsewhere; B96.89 Other specified bacterial agents as the cause of diseases classified elsewhere; I10 Essential (primary) hypertension; K51.019 Ulcerative (chronic) pancolitis with unspecified complications; Z74.01 Bed confinement status | CPT/HCPCS: 36415; 82948 ==

== ENCOUNTER → 2020-06-12 | Outpatient (RCR) | payer MEDICARE, OTHER ==
[~2020-06-12] MED LIST changes: +LIDOCAINE VISC 2% SOLN 15 ML UDC ONE
== END ==
LOC: WCC 05-22 14:34
PROVIDERS: ATTEND Family Medicine
DX: L89.152 Pressure ulcer of sacral region, stage 2 (principal); E11.628 Type 2 diabetes mellitus with other skin complications; Y83.8 Other surgical procedures as the cause of abnormal reaction of the patient, or of later complication, without mention of misadventure at the time of the procedure; I10 Essential (primary) hypertension; K51.019 Ulcerative (chronic) pancolitis with unspecified complications; Z74.01 Bed confinement status

== ENCOUNTER 2020-07-10 14:08 | Outpatient (RCR) | payer MEDICARE, OTHER ==
[~2020-07-10 14:08] MED LIST changes: -LIDOCAINE VISC 2% SOLN 15 ML UDC ONE
== END 2020-07-13 ==
LOC: WCC 14:08
PROVIDERS: ATTEND Family Medicine
DX: L89.152 Pressure ulcer of sacral region, stage 2 (principal); E11.628 Type 2 diabetes mellitus with other skin complications; Y83.8 Other surgical procedures as the cause of abnormal reaction of the patient, or of later complication, without mention of misadventure at the time of the procedure; I10 Essential (primary) hypertension; K51.019 Ulcerative (chronic) pancolitis with unspecified complications; Z74.01 Bed confinement status

== ENCOUNTER 2020-08-07 13:34 | Outpatient (RCR) | payer MEDICARE, OTHER ==
[~2020-08-07 13:34] MED LIST changes: -LIDOCAINE/PRILOCAINE 2.5-2.5% KIT ONE; -MUPIROCIN 2% OINT 22 GM TUBE ONE
== END 2020-08-12 ==
LOC: WCC 13:34
PROVIDERS: ATTEND Family Medicine
DX: L89.152 Pressure ulcer of sacral region, stage 2 (principal); E11.628 Type 2 diabetes mellitus with other skin complications; Y83.8 Other surgical procedures as the cause of abnormal reaction of the patient, or of later complication, without mention of misadventure at the time of the procedure; I10 Essential (primary) hypertension; K51.019 Ulcerative (chronic) pancolitis with unspecified complications; Z74.01 Bed confinement status
CPT/HCPCS: 36415; 82948

== ENCOUNTER → 2020-08-28 | Outpatient (CLI) | payer MEDICARE, OTHER ==
[~2020-08-28] MED LIST changes: +LIDOCAINE VISC 2% SOLN 15 ML UDC ONE
== END ==
LOC: WCC 10:31
PROVIDERS: ATTEND Family Medicine
DX: L89.152 Pressure ulcer of sacral region, stage 2 (principal); Y83.8 Other surgical procedures as the cause of abnormal reaction of the patient, or of later complication, without mention of misadventure at the time of the procedure; E11.628 Type 2 diabetes mellitus with other skin complications; I10 Essential (primary) hypertension; K51.019 Ulcerative (chronic) pancolitis with unspecified complications; Z74.01 Bed confinement status

== ENCOUNTER 2021-12-01 11:46 | Outpatient (RCR) | payer MEDICARE, OTHER ==
[2021-12-01] MEDS ORDERED: LIDOCAINE VISC 2% SOLN 15 ML UDC ONE (13:00)
== END 2021-12-11 ==
LOC: WCC 11:46
PROVIDERS: ATTEND Internal Medicine Infectious Disease
DX: E11.628 Type 2 diabetes mellitus with other skin complications (principal); Y83.8 Other surgical procedures as the cause of abnormal reaction of the patient, or of later complication, without mention of misadventure at the time of the procedure; S31.104A Unspecified open wound of abdominal wall, left lower quadrant without penetration into peritoneal cavity, initial encounter; I10 Essential (primary) hypertension; K51.019 Ulcerative (chronic) pancolitis with unspecified complications; X58.XXXA Exposure to other specified factors, initial encounter; Z74.01 Bed confinement status
CPT/HCPCS: 36415; 82948; 87071; 87075; 87186; 87205

== ENCOUNTER → 2022-02-10 | Outpatient (RCR) | payer MEDICARE, OTHER ==
[~2022-02-10] MED LIST changes: -LIDOCAINE VISC 2% SOLN 15 ML UDC ONE
== END ==
LOC: WCC 01-12 14:26
PROVIDERS: ATTEND Internal Medicine Infectious Disease
DX: T81.89XS Other complications of procedures, not elsewhere classified, sequela (principal); Y83.8 Other surgical procedures as the cause of abnormal reaction of the patient, or of later complication, without mention of misadventure at the time of the procedure; E11.628 Type 2 diabetes mellitus with other skin complications; I10 Essential (primary) hypertension; K50.812 Crohn's disease of both small and large intestine with intestinal obstruction; X58.XXXA Exposure to other specified factors, initial encounter; Z74.01 Bed confinement status

== ENCOUNTER 2022-02-26 13:38 | Outpatient (RCR) | payer MEDICARE, OTHER | END 2022-03-12 | LOC: WCC 13:38 | PROVIDERS: ATTEND Internal Medicine Infectious Disease | DX: T81.89XS Other complications of procedures, not elsewhere classified, sequela (principal); Y83.8 Other surgical procedures as the cause of abnormal reaction of the patient, or of later complication, without mention of misadventure at the time of the procedure; E11.628 Type 2 diabetes mellitus with other skin complications; I10 Essential (primary) hypertension; K50.812 Crohn's disease of both small and large intestine with intestinal obstruction; X58.XXXA Exposure to other specified factors, initial encounter; Z74.01 Bed confinement status ==